=== PATIENT | female | born 1940 | race Caucasian/White ===

== ENCOUNTER → 2016-03-09 | Outpatient (CLI) | payer MEDICARE, MEDICAID ==
[~2016-03-09] MED LIST: AMLO-512 PO; ASPI-556 PO; ATOR20TA86 PO; BACL10TA PO; BENA20TA77 PO; CYCL10 PO; DEXL60CA3 PO; FENO160 PO; HYDR-3971 PO; HYDR10SY16 PO; LEVO88TA7 PO; LORA0.5T2 PO; METH4TAB PO; METO-323 PO; PREG50 PO
== END | disposition home or self-care (01) ==
LOC: RADPV 08:37
PROVIDERS: ATTEND Orthopaedic Surgery
DX: M19.011 Primary osteoarthritis, right shoulder (principal)